=== PATIENT | female | born 1960 | race Caucasian/White ===

== ENCOUNTER 2021-09-07 18:37 | Emergency (ER) | payer BC ==
[2021-09-07 20:07] LABS: HEMOGLOBIN 12.8 gm/dl (12.3-15.3); RED BLOOD COUNT 4.12 M/UL (4.00-5.10); WHITE BLOOD COUNT 6.2 K/UL (4.5-11.0)
[2021-09-07 20:28] LABS: BUN/CREATININE RATIO 15 (0-10)
== END 2021-09-07 21:21 | disposition home or self-care (01) ==
LOC: ER1 18:37
PROVIDERS: Emergency Medicine
DX: S29.011A Strain of muscle and tendon of front wall of thorax, initial encounter (principal); X58.XXXA Exposure to other specified factors, initial encounter
CPT/HCPCS: 71250; 80053; 82550; 82553; 84484; 85025; 93005; 99284